=== PATIENT | male | born 1950 | race Caucasian/White ===

== ENCOUNTER 2016-10-11 16:36 | Inpatient (IN) | payer MEDICARE, OTHER ==
--- NOTE | ~2016-10-11 | HP ---
History And Physical [address] [place]. [address] NAME: JUSTICE BENOIT : 52 STATUS : ADM IN [facility]#: [id number] AGE: 66 ADM/REG DATE : 10/11/16 MR#: [id number] REPORT SERV DATE: 10/11/16 DICTATED BY: JACKI GUPTA DATE: 10/11/16 REPORT STATUS : Draft TRANSCRIBED BY: MODL DATE: 10/11/16 DATE OF ADMISSION: 10/11/2016 REASON FOR TRANSFER: For acute hypoxic respiratory failure, requiring Pulmonary consultation. HISTORY OF PRESENT ILLNESS: A 66-year-old male with a past medical history of HIV, diagnosed in 2002, being followed by Dr. Alfonso Delgadillo. Also, which the patient states that his last viral load was undetectable and the CD4 count was greater than a 1000. Also, the patient follows up with Dr. Cooney and Dr. Brown for diagnosis of rectal cancer for which the patient had his last dose of chemoradiation in May 2016. The patient also has a history of COPD, currently not requiring any home oxygen prior to his admission. The patient presented to [facility] on 10/09/2016 for chief complaint of worsening shortness of breath. According to the patient, he states that he has had shortness of breath for several months, however, it has progressed. Also, he has had a postnasal drainage. He is being seen by audit analyst, Dr. French, who believes it is the side effect from his chemo. Upon arrival to [facility], the patient had a low-grade fever of 100.2 with some leukocytoses on admission of 13.2. The patient was seen and cared for by Dr. Omari Brooke. A CTA of the chest as well as a chest x-ray was ordered. The CTA of the chest was negative for PE. It did not report any active infiltrates, but only signs of bilateral emphysematous changes. The patient was requiring 6 L of oxygen. He was admitted to [facility] and empirically placed on antibiotics with azithromycin and Rocephin. Also, the patient was placed on IV Solu-Medrol and bronchodilators. Transfer to the [facility] from Dr. Brooke was requested for Pulmonary consultation and to rule out any underlying pulmonary hypertension. The patient denies any chest discomfort at this time. Positive dry cough. Positive subjective fever, chills several days ago which has now resolved. HOME MEDICATIONS: Albuterol p.r.n., aspirin 81 mg p.o. daily, Atripla one tab p.o. q.h.s., Advair 115/21 two puffs inhaled daily, metformin 1000 mg p.o. daily, Remeron 45 mg p.o. q.h.s., multivitamin, Pravachol 80 mg p.o. q.h.s. PAST MEDICAL HISTORY: HIV diagnosed in 2002, the patient denies any opportunistic infections or AIDS defining infections; rectal cancer, status post chemoradiation in April 2016 and radiation treatment in May 2016; COPD, not on home O2; type 2 diabetes; history of hydronephrosis; and history of pneumonia on several episodes. PAST SURGICAL HISTORY: Cystoscopy. FAMILY HISTORY: Colon cancer in grandmother and breast cancer in sibling. SOCIAL HISTORY: Positive tobacco abuse. Smokes 1 to 1-1/2 pack per day for more than 40 years. Occasional beer or wine. Denies any sick contacts. ALLERGIES: NO KNOWN ALLERGIES. History And Physical [address] [address] NAME: JUSTICE BENOIT : 52 STATUS : ADM IN [facility]#: [id number] AGE: 66 ADM/REG DATE : 10/11/16 MR#: [id number] REPORT SERV DATE: 10/11/16 DICTATED BY: JACKI GUPTA DATE: 10/11/16 REPORT STATUS : Draft TRANSCRIBED BY: MARIA ISABEL DATE: 10/11/16 PHYSICAL EXAMINATION: VITAL SIGNS: Temp of 98.2, blood pressure 117/61 with a pulse of 101, respiration of 22, saturating 92% on 6 L. GENERAL: The patient is alert and oriented x3, currently in no distress. Very talkative. Speaking full sentences. Thin. HEENT: Pupils equal, round, and reactive to light. Extraocular muscles are intact. Anicteric sclerae. CARDIOVASCULAR: S1, S2. No appreciated rubs or gallops. No JVD. RESPIRATORY: Mild expiratory wheeze in the upper lung field on the right upper lobe. No rhonchi, no rales, and no tachypnea. ABDOMEN: Positive bowel sounds. Soft, nontender with chronic ventral hernia nontender. No abdominal distention. EXTREMITIES: Extremities warm. No edema. Good pulses. NEURO: Cranial nerves II through XII are grossly intact. Moves all four extremities. No neuro focal deficits. SKIN: No appreciated rashes. Positive dry skin. Poor skin turgor. LABORATORY DATA: At [facility] currently pending for the a.m. However, labs from [facility] for 10/11/2016 at [facility] with a white count of 15,000, hemoglobin of 7.5, platelet count of 198, neutrophils 91% and lymphocytes 5%. Sodium 139, potassium 4.3, chloride 106, bicarb of 22, BUN of 16, creatinine of 1.07, glucose of 195. Total protein of 6.6, alkaline phosphatase of 102, ALT of 14, AST of 17, total bilirubin of 0.2. Troponin less than 0.3 x 3. ASSESSMENT AND PLAN: 1. Acute hypoxic respiratory failure. 2. Chronic obstructive pulmonary disease exacerbation. 3. Systemic inflammatory response syndrome. 4. History of human immunodeficiency virus. 5. History of type 2 diabetes. The patient is currently admitted to cardiac telemetry. We will continue with bronchodilators/nebulizers as well as a steroid taper for underlying chronic obstructive pulmonary disease exacerbation and empiric antibiotics, although no signs of pneumonia, no active infiltrate on CTA. We will consult Pulmonary, and also, we would check influenza swab for history of recent systemic inflammatory response syndrome while at [facility] and blood cultures. We will check for a.m. labs. Also, we would check an echocardiogram for evaluation of possible pulmonary hypertension and although suspect the patient's acute hypoxic respiratory failure may be also due to his chronic obstructive pulmonary disease exacerbation. However, will await for Pulmonary evaluation. Also, I will add pulmonary toileting. PHILIPP/MODL Jacki Blandon History And Physical [address] [facility] [place]. [address] NAME: JUSTICE BENOIT : 52 STATUS : ADM IN [facility]#: [id number] AGE: 66 ADM/REG DATE : 10/11/16 MR#: [id number] REPORT SERV DATE: 10/11/16 DICTATED BY: JACKI GUPTA DATE: 10/11/16 REPORT STATUS : Draft TRANSCRIBED BY: MODL DATE: 10/11/16 Dwayne Gupta / [id number] CC: Dwayne Villanueva M.D.
--- NOTE | ~2016-10-11 | DS ---
Discharge Summary [address] [address] NAME: JUSTICE BENOIT : 52 STATUS : DIS IN PAT#: [id number] AGE: 66 ADM/REG DATE : 10/11/16 MR#: [id number] REPORT SERV DATE: 10/16/16 DICTATED BY: REJI GAYLE DATE: 10/15/16 REPORT STATUS : Draft TRANSCRIBED BY: MODL DATE: 10/15/16 ADMISSION DATE: 10/11/2016 DISCHARGE DATE: 10/15/2016 DISCHARGE DIAGNOSES: 1. Acute hypoxemic respiratory failure. 2. Acute exacerbation of chronic obstructive pulmonary disease. 3. Systemic inflammatory response syndrome. 4. Elevated BNP. 5. Mild left ventricular diastolic dysfunction. 6. Type 2 diabetes. 7. Acute blood loss anemia. 8. Iron deficiency, treated with IV Nulecit in this admission, needs outpatient endoscopic evaluation. 9. History of anal cancer, treated. 10.Human immunodeficiency virus on treatment. 11.Depression on treatment. 12.Elevated PSA associated with delayed left ureteral drainage on cystoscopy and RPG, followed by Dr. Yeager. 13.Oropharyngeal candidiasis associated with current treatment. OPERATIONS AND PROCEDURES: None. PRESENT ILLNESS: This is a 66-year-old white male who was admitted to [facility] on 10/09/2016 for progressive increased shortness of breath. At [facility], he had a low-grade fever of 100.2 with a white count of 13.2. A CTA of the chest was done which showed COPD, but no pulmonary embolus or active infiltrates. He was empirically placed on azithromycin and Rocephin, IV Solu-Medrol and bronchodilator therapy. He initially required 6 L of oxygen. He was cared for by Dr. Brooke. Transfer to [facility] was requested for pulmonary consultation and to evaluate for pulmonary hypertension. ADDITIONAL HISTORY: Per admitting physician Dr. Garcia. PHYSICAL EXAMINATION: Per Dr. Garcia. ADMISSION LABORATORY: Per Dr. Garcia. HOSPITAL COURSE: He was admitted with: 1. Acute hypoxemic respiratory failure. 2. Acute exacerbation of COPD. 3. Systemic inflammatory response syndrome. All in the setting of the above-mentioned comorbidities. Discharge Summary [address] [address] NAME: JUSTICE BENOIT : 52 STATUS : DIS IN PAT#: [id number] AGE: 66 ADM/REG DATE : 10/11/16 MR#: [id number] REPORT SERV DATE: 10/16/16 DICTATED BY: REJI GAYLE DATE: 10/15/16 REPORT STATUS : Draft TRANSCRIBED BY: MARIA ISABEL DATE: 10/15/16 On admission, his antimicrobial therapy was changed to Levaquin. Aggressive bronchodilator therapy was given. Pulmonary consultation was obtained. His hospitalist care was assumed by the undersigned on 10/12/2016 and he was followed until discharge. He was seen by Dr. Pan. He concurred with the above-mentioned treatment. He was subsequently followed by Dr. Higuera. An echocardiogram was done which showed left ventricular systolic function intact at 64% with mild left ventricular diastolic dysfunction. Right ventricular systolic function was intact and there was no significant valvular dysfunction. There was no evidence for pulmonary hypertension. The patient reported that he had had some lower extremity edema. A chest x-ray done on admission here showed some pulmonary vascular congestion and a BNP level was 345.2. When seen by the undersigned, he was given some diuretic therapy. By the time of discharge, he had no peripheral edema. A followup BNP level was 115.2. During the course of his hospitalization, there was a slow but steady improvement in his dyspnea, cough, and fatigue. His oxygen requirements also improved. The day of discharge, his O2 sat was 85% on room air and 94% on 2 L. On admission, his hemoglobin was 7.3. Followup hemoglobins were 7.7, 8.3, 8.3, and 8.3. He had an evaluation that included an iron of 32, TIBC of 288, and a low ferritin of 28. His B12 level was normal at 286 as well as a TSH of 1.8. In addition, LDH was normal at 215 and a serum protein electrophoresis did not demonstrate a monoclonal gammopathy. One stool was Hemoccult negative. He was given IV iron replacement with Nulecit. He tolerated this well. A reticulocyte count on the day of admission was 2.5% and absolute 69.4. He will need further endoscopic evaluation as an outpatient when his pulmonary status allows. He does have scheduled followup to see Dr. Jimbo Lozada. Additional data pertinent to his presentation included negative influenza screening and urinary streptococcal and Legionella antigen screening. Blood cultures done on admission were no growth, but as noted, he had been on antimicrobial therapy at [facility]. By 10/15/2016, it was felt that he had achieved a level of improvement and stability and he could be safely discharged home with outpatient followup to see his Infectious Disease specialist, Dr. Delgadillo in [place] on 10/22/2016. He will follow up with Dr. Pan in the office in three to four weeks. He has a scheduled followup to see Dr. Jimbo Lozada in November of this year. He will continue his home diet and activity. Discharge Summary [id number] [place]. [address] NAME: JUSTICE BENOIT : 52 STATUS : DIS IN PAT#: [id number] AGE: 66 ADM/REG DATE : 10/11/16 MR#: [id number] REPORT SERV DATE: 10/16/16 DICTATED BY: REJI GAYLE DATE: 10/15/16 REPORT STATUS : Draft TRANSCRIBED BY: MARIA ISABEL DATE: 10/15/16 DISCHARGE MEDICATIONS: Pending outpatient followup, aspirin 81 mg daily, Atripla one tablet at bedtime, Levaquin 750 mg daily for three further days to complete a one-week course, Remeron 45 mg at bedtime, OTC Habitrol Patch 21 mg, Pravachol 80 mg daily, Ventolin HFA two puffs every 4 hours as needed, Advair Diskus two puffs every 12 hours, multivitamin daily, metformin 1000 mg daily, Mycelex five times daily as needed for oral candidiasis. He will take a tapering prednisone course 40 mg daily for three days, 30 mg daily for three days, 20 mg daily for three days, 10 mg daily for three days, then stop. It was recommended that he have tiotropium (Spiriva) at discharge. I was called by his pharmacist post discharge that this is not covered on his drug plan. He was therefore changed to Combivent Respimat one puff four times daily. Discharge time greater than 30 minutes. DICTATED BY: Reji Gayle M.D. DD/MARIA ISABEL Reji Gayle M.D. / [id number] CC: Dwayne Villa MD Hisham F. Qutob, MD J. Daniel Stanley, M.D.
--- NOTE | ~2016-10-11 | CN ---
Consultation Report [facility] [address] [place]. [address] NAME: JUSTICE BENOIT : 52 STATUS : ADM IN PAT#: [id number] AGE: 66 ADM/REG DATE : 10/11/16 MR#: [id number] REPORT SERV DATE: 10/12/16 DICTATED BY: NEO PAN DATE: 10/12/16 REPORT STATUS : Draft TRANSCRIBED BY: MODL DATE: 10/12/16 PULMONARY CONSULT NOTE DATE OF CONSULTATION: 10/12/2016 REASON FOR CONSULTATION: Acute hypoxia. CHIEF COMPLAINT: Increased cough. HISTORY OF PRESENT ILLNESS: Mr. Benoit is a 66-year-old gentleman with a past medical history of anal cancer, underlying emphysema, and HIV. The patient states that he had his last doses of chemo and radiation in May, but in July, had an acute onset of chest pain. The patient states he had a CT scan at [facility] which was negative for blood clot at the time. He noted that there was some emphysema. The chest pain has been intermittent. He had another CT scan done, which shows essentially the same findings with emphysema, but no blood clot. This was just done two days ago at [facility]. I tried to look at the images, but the images would not load up. Otherwise, he has been having a cough, but no sputum production, the patient states that he has intermittent postnasal drip and currently is having wheezing. He has admitted with a diagnosis of an acute exacerbation of COPD and is currently on treatment for that. Otherwise, the patient is usually not on oxygen therapy at home. Otherwise, no further complaints. PAST MEDICAL HISTORY: HIV, anal cancer status post chemo and radiation, emphysema, tobacco use, anemia. HOME MEDICATIONS: Albuterol, aspirin, Atripla, Advair, Glucophage, Remeron, Centrum, Pravachol. ALLERGIES: NO KNOWN DRUG ALLERGIES. FAMILY HISTORY: Father had emphysema, mother has dementia and diabetes, sister with cancer, other family members with cancer. SOCIAL HISTORY: The patient is a long-time tobacco user, occasional alcohol use. REVIEW OF SYSTEMS: All pertinent review of systems is reviewed and otherwise negative. PHYSICAL EXAMINATION: VITAL SIGNS: The patient is currently afebrile, heart rate around 100, respiratory rate 18 to 20, oxygen saturation 90% to 92% on 6 L nasal cannula with a blood pressure currently anywhere between 109 and 139. GENERAL: The patient is sitting up in bed, in no acute distress. PULMONARY: Distant breath sounds bilaterally with mild coarseness. Consultation Report [id number] [facility] [place]. [address] NAME: JUSTICE BENOIT : 52 STATUS : ADM IN [facility]#: [id number] AGE: 66 ADM/REG DATE : 10/11/16 MR#: [id number] REPORT SERV DATE: 10/12/16 DICTATED BY: NEO PAN DATE: 10/12/16 REPORT STATUS : Draft TRANSCRIBED BY: MODSobia DATE: 10/12/16 CARDIAC: Regular rate, possibly tachycardic, with no murmurs. No JVD. ABDOMEN: Soft, nontender, nondistended. EXTREMITIES: Peripheral pulses noted, no lower extremity edema, no cyanosis. NEUROLOGIC: The patient is able to move all extremities without any difficulty. LABORATORY EXAMINATION: Mild leukocytosis, hemoglobin 7.3, good kidney function, BNP is 345. IMAGING DATA: Chest x-ray here shows pulmonary vascular congestion in the setting of chronic lung changes. This is per Radiology, with my interpretation, the patient clearly has underlying chronic lung diseases. ASSESSMENT AND PLAN: Mr. Benoit is a 66-year-old gentleman with a past medical history of human immunodeficiency virus and anal cancer, who presents with these findings. The patient has currently acute hypoxic respiratory failure. Acute hypoxic respiratory failure: Agree with the treatment of acute exacerbation of chronic obstructive pulmonary disease, however, I am concerned that there may be more than just that going on. Looking at the CT scan from 07/2016, as I am not able to look at the one that was done at [facility], the patient clearly has an engorged pulmonary artery but not greater than 28 mm. He does have extensive underlying emphysematous changes in bilateral infiltrates. I would like to get a repeat echocardiogram looking for heart failure, pulmonary hypertension is also within the concern of differential. Would also like to physically look at the images from [facility] and we will attempt to obtain that. Thank you very much for this consultation, at this moment in time, we will look for further findings for pulmonary hypertension and/or heart failure. HFQ/MODL Neo Pan MD / [id number] CC: Pa Gayle M.D.
[~2016-10-11 16:36] MED LIST: ASAB PO; ATRIPLA PO; GLUCPH PO; PRAVACHOL80 MG PO; REMERON45 MG PO; [UNRECOGNIZED DRUG - OTHER] PO
[2016-10-11] MEDS ORDERED: CENTRUM PO (17:38)
[2016-10-11] MEDS ORDERED: VENTOLIN HFA PO (17:38)
[2016-10-11] MEDS ORDERED: ATRIPLA PO (17:38)
[2016-10-11] MEDS ORDERED: PRAVACHOL80 MG PO (17:39)
[2016-10-11] MEDS ORDERED: REMERON45 MG PO (17:39)
[2016-10-11] MEDS ORDERED: GLUCOPHAGE1000 MG PO (17:39)
[2016-10-11] MEDS ORDERED: HALF81 PO (17:39)
[2016-10-11] MEDS ORDERED: ADVAIR115P INH (17:40)
[2016-10-11 20:53] LABS: INFLUENZA A SCREEN NEGATIVE (NEGATIVE); INFLUENZA B SCREEN NEGATIVE (NEGATIVE)
[2016-10-12 03:28] LABS: BASOPHILS 0.1 %; BASOPHILS ABSOLUTE 0.01 10/3/uL (0.0-0.16); EOSINOPHILS 0.1 %; EOSINOPHILS ABSOLUTE 0.01 10/3/uL (0.0-0.53); IMMATURE GRANULOCYTES 0.5 %; IMMATURE GRANULOCYTES ABSOLUTE 0.06 10/3/uL (0.0-0.11); LYMPHOCYTES ABSOLUTE 0.87 10/3/uL (0.67-4.30); MEAN CORPUS HGB CONC 31.6 g/dL (32.0-36.0); MEAN CORPUSCULAR HEMOGLOB 29.8 pg (26.0-34.0); MEAN CORPUSCULAR VOLUME 94.3 fL (80-100); MEAN PLATELET VOLUME 8.7 fL (9.2-13.0); MONOCYTES 3.3 %; MONOCYTES ABSOLUTE 0.41 10/3/uL (0.21-1.20); NEUTROPHILS ABSOLUTE 11.06 10/3/uL (2.02-8.40); PLATELET COUNT 187 10/3/uL (150-400); RBC DISTRIBUTION WIDTH 16.1 % (12.0-16.0); RED CELL COUNT 2.45 10/6/uL (4.7-6.1); WHITE BLOOD CELLS 12.4 10/3/uL (4.5-10.5)
[2016-10-12 03:29] LABS: HEMATOCRIT 23.1 % (40.0-51.0); HEMOGLOBIN 7.3 g/dL (13.6-17.8); MANUAL DIFF NO %
[2016-10-12 03:37] LABS: PARTIAL THROMBO TIME 31.4 SEC (22.5-37.2); PROTIME (NOT ORD) 13.5 SEC (12.0-14.5)
[2016-10-12 03:44] LABS: A/G RATIO 0.7 (0.7-1.9); ALBUMIN 2.6 G/DL (3.5-5.0); ALKALINE PHOSPHATASE 96 U/L (45-117); CALCIUM, SERUM 8.3 MG/DL (8.5-10.4); CHLORIDE, SERUM 109 MMOL/L (96-112); CO2 (CARBON DIOXIDE) 26 MMOL/L (24-34); CREATININE 1.11 MG/DL (0.70-1.30); GFR AFRICAN AMERICAN 80 ML/MIN (>=60); GFR NON AFRICAN AMERICAN 69 ML/MIN (>=60); GLOBULIN 3.8 G/DL (2.5-4.1); POTASSIUM, SERUM 4.6 MMOL/L (3.5-5.3); SGOT(AST) 18 U/L (5-40); SGPT(ALT) 22 U/L (5-65); SODIUM, SERUM 139 MMOL/L (135-148); TOTAL BILIRUBIN 0.3 MG/DL (0-1.2); TOTAL PROTEIN 6.4 G/DL (6.0-8.5)
[2016-10-12 03:46] LABS: BUN (BLOOD UREA NITROGEN) 14 MG/DL (6-23); GLUCOSE, SERUM 164 MG/DL (60-99)
[2016-10-12 04:18] LABS: PROCALCITONIN 0.11 ng/mL (<0.5)
[2016-10-12 11:08] LABS: T PROTEIN (ELECT)(NOT OR 6.1 G/DL (6.0-8.5)
[2016-10-12 11:14] LABS: B NATRIURETIC PEPTIDE (BNP) 345.2 PG/ML (< 100.0)
[2016-10-12 11:28] LABS: FERRITIN 28 NG/ML (26-388); IRON BINDING CAPACITY 288 MCG/DL (250-450); IRON, SERUM 32 MCG/DL (35-150); TROPONIN I 0.02 NG/ML (<0.05)
[2016-10-12 12:23] LABS: HEMATOCRIT 24.5 % (40.0-51.0); HEMOGLOBIN 7.7 g/dL (13.6-17.8)
[2016-10-12 12:53] LABS: GLYCOHEMOGLOBIN (HbA1c) 6.7 % (4.7-6.1)
[2016-10-13 06:20] LABS: BASOPHILS 0.4 %; BASOPHILS ABSOLUTE 0.03 10/3/uL (0.0-0.16); EOSINOPHILS 1.5 %; EOSINOPHILS ABSOLUTE 0.12 10/3/uL (0.0-0.53); HEMATOCRIT 26.2 % (40.0-51.0); HEMOGLOBIN 8.3 g/dL (13.6-17.8); IMMATURE GRANULOCYTES 0.6 %; IMMATURE GRANULOCYTES ABSOLUTE 0.05 10/3/uL (0.0-0.11); LYMPHOCYTES 14.7 %; LYMPHOCYTES ABSOLUTE 1.18 10/3/uL (0.67-4.30); MEAN CORPUS HGB CONC 31.7 g/dL (32.0-36.0); MEAN CORPUSCULAR HEMOGLOB 29.1 pg (26.0-34.0); MEAN CORPUSCULAR VOLUME 91.9 fL (80-100); MEAN PLATELET VOLUME 8.6 fL (9.2-13.0); MONOCYTES 7.2 %; MONOCYTES ABSOLUTE 0.58 10/3/uL (0.21-1.20); NEUTROPHILS 75.6 %; NEUTROPHILS ABSOLUTE 6.05 10/3/uL (2.02-8.40); PLATELET COUNT 231 10/3/uL (150-400); RBC DISTRIBUTION WIDTH 16.4 % (12.0-16.0); RED CELL COUNT 2.85 10/6/uL (4.7-6.1)
[2016-10-13 06:22] LABS: MANUAL DIFF NO %
[2016-10-13 06:37] LABS: CALCIUM, SERUM 8.7 MG/DL (8.5-10.4); CHLORIDE, SERUM 105 MMOL/L (96-112); CO2 (CARBON DIOXIDE) 27 MMOL/L (24-34); CREATININE 1.05 MG/DL (0.70-1.30); GFR AFRICAN AMERICAN 86 ML/MIN (>=60); GFR NON AFRICAN AMERICAN 74 ML/MIN (>=60); SODIUM, SERUM 139 MMOL/L (135-148)
[2016-10-13 06:40] LABS: BUN (BLOOD UREA NITROGEN) 18 MG/DL (6-23); GLUCOSE, SERUM 113 MG/DL (60-99)
[2016-10-13 10:13] LABS: A/G 1.14 RATIO (0.9-2.10); ALB RELATIVE % 53.3 % (60.0-89.0); ALBUMIN (ELECTRO) 3.25 GM/DL (3.2-5.5); ALPHA 1 (ELECTRO) 0.27 GM/DL (0.1-0.4); ALPHA 1 RELAT % (NOT ORD) 4.5 % (1.0-4.0); ALPHA 2 (ELECTRO) 0.84 GM/DL (0.5-1.10); ALPHA 2 RELAT % 13.8 % (4.5-26.0); BETA GLOBULIN (SPE) 0.72 GM/DL (0.60-1.30); BETA RELATIVE % 11.8 % (9.0-22.0); GAMMA GLOBULIN (SPE) 1.01 G/DL (0.70-1.60); GAMMA RELAT % 16.6 % (6.0-22.0)
[2016-10-13 17:41] LABS: FREE T4 1.09 NG/DL (0.76-1.46)
[2016-10-14 07:02] LABS: BASOPHILS 0.3 %; BASOPHILS ABSOLUTE 0.02 10/3/uL (0.0-0.16); EOSINOPHILS 1.6 %; EOSINOPHILS ABSOLUTE 0.12 10/3/uL (0.0-0.53); HEMATOCRIT 26.6 % (40.0-51.0); HEMOGLOBIN 8.3 g/dL (13.6-17.8); IMMATURE GRANULOCYTES 0.8 %; IMMATURE GRANULOCYTES ABSOLUTE 0.06 10/3/uL (0.0-0.11); LYMPHOCYTES ABSOLUTE 1.28 10/3/uL (0.67-4.30); MEAN CORPUS HGB CONC 31.2 g/dL (32.0-36.0); MEAN CORPUSCULAR HEMOGLOB 29.3 pg (26.0-34.0); MEAN PLATELET VOLUME 8.8 fL (9.2-13.0); MONOCYTES 8.1 %; MONOCYTES ABSOLUTE 0.61 10/3/uL (0.21-1.20); NEUTROPHILS 72.2 %; NEUTROPHILS ABSOLUTE 5.42 10/3/uL (2.02-8.40); PLATELET COUNT 234 10/3/uL (150-400); RBC DISTRIBUTION WIDTH 16.3 % (12.0-16.0); RED CELL COUNT 2.83 10/6/uL (4.7-6.1); WHITE BLOOD CELLS 7.5 10/3/uL (4.5-10.5)
[2016-10-14 07:06] LABS: MANUAL DIFF NO %
[2016-10-15 05:00] LABS: BASOPHILS 0.5 %; BASOPHILS ABSOLUTE 0.03 10/3/uL (0.0-0.16); EOSINOPHILS 2.4 %; EOSINOPHILS ABSOLUTE 0.13 10/3/uL (0.0-0.53); HEMATOCRIT 25.9 % (40.0-51.0); HEMOGLOBIN 8.3 g/dL (13.6-17.8); IMMATURE GRANULOCYTES 1.8 %; LYMPHOCYTES 24.7 %; LYMPHOCYTES ABSOLUTE 1.36 10/3/uL (0.67-4.30); MEAN CORPUSCULAR HEMOGLOB 29.6 pg (26.0-34.0); MEAN CORPUSCULAR VOLUME 92.5 fL (80-100); MEAN PLATELET VOLUME 8.8 fL (9.2-13.0); MONOCYTES 9.4 %; MONOCYTES ABSOLUTE 0.52 10/3/uL (0.21-1.20); NEUTROPHILS 61.2 %; NEUTROPHILS ABSOLUTE 3.37 10/3/uL (2.02-8.40); PLATELET COUNT 259 10/3/uL (150-400); RBC DISTRIBUTION WIDTH 15.9 % (12.0-16.0); RETICULOCYTE COUNT 2.5 % (0.5-2.5); RETICULOCYTE COUNT ABSOLUTE 69.4 10/3/uL (20.2-119.8); WHITE BLOOD CELLS 5.5 10/3/uL (4.5-10.5)
[2016-10-15 05:04] LABS: MANUAL DIFF NO %
[2016-10-15 05:08] LABS: BUN (BLOOD UREA NITROGEN) 19 MG/DL (6-23); CALCIUM, SERUM 8.9 MG/DL (8.5-10.4); CHLORIDE, SERUM 100 MMOL/L (96-112); CO2 (CARBON DIOXIDE) 26 MMOL/L (24-34); CREATININE 0.93 MG/DL (0.70-1.30); GFR AFRICAN AMERICAN 99 ML/MIN (>=60); GFR NON AFRICAN AMERICAN 86 ML/MIN (>=60); GLUCOSE, SERUM 121 MG/DL (60-99); POTASSIUM, SERUM 4.1 MMOL/L (3.5-5.3); SODIUM, SERUM 133 MMOL/L (135-148)
[2016-10-15] MEDS ORDERED: HABIT21 (13:17)
[2016-10-15] MEDS ORDERED: LEVAQUIN750 MG PO (13:17)
[2016-10-15] MEDS ORDERED: SPIRIVA INH (13:18)
[2016-10-15] MEDS ORDERED: MYCELEX TROCHE10 MG PO (13:20)
[2016-10-15] MEDS ORDERED: P10 (13:21)
== END 2016-10-15 15:31 | disposition home or self-care (01) | DRG 189 ==
LOC: 6NO 16:36
PROVIDERS: Internal Medicine
DX: J96.01 Acute respiratory failure with hypoxia (principal); B37.0 Candidal stomatitis; J44.1 Chronic obstructive pulmonary disease with (acute) exacerbation; D62 Acute posthemorrhagic anemia; C21.0 Malignant neoplasm of anus, unspecified; E11.9 Type 2 diabetes mellitus without complications; F17.210 Nicotine dependence, cigarettes, uncomplicated; E61.1 Iron deficiency; F32.9 Major depressive disorder, single episode, unspecified; R09.82 Postnasal drip; T45.1X5A Adverse effect of antineoplastic and immunosuppressive drugs, initial encounter; I51.9 Heart disease, unspecified; R97.20 Elevated prostate specific antigen [PSA]; Z21 Asymptomatic human immunodeficiency virus [HIV] infection status; Z92.3 Personal history of irradiation; Z92.21 Personal history of antineoplastic chemotherapy; Z79.82 Long term (current) use of aspirin; Z79.84 Long term (current) use of oral hypoglycemic drugs; Z87.01 Personal history of pneumonia (recurrent); Z80.0 Family history of malignant neoplasm of digestive organs; Z80.3 Family history of malignant neoplasm of breast
CPT/HCPCS: 36415; 71010; 71020; 80048; 80053; 82272; 82607; 82728; 82962; 83036; 83540; 83550; 83615; 83735; 83880; 84145; 84155; 84165; 84439; 84443; 84484; 85014; 85018; 85025; 85045; 85610; 85730; 86850; 86900; 86901; 87040; 87449; 87804; 93306; 94640; 94668; A9270-GY; J1940; J1956; J2916; J2930